=== PATIENT | female | born 1945 | race Caucasian/White ===

== ENCOUNTER 2020-08-14 17:59 | Emergency (ER) | payer MEDICARE, OTHER ==
[~2020-08-14] VITALS: Ht 167.6 cm; Wt 53.0 kg
[2020-08-14 18:10] VITALS: BP 150/100
--- NOTE | 2020-08-14 18:12 | PHYS DOC ---
Past History Past Medical History: Arthritis General Adult EDM: Chief Complaint: MECHANICAL FALL HPI: HPI: "..Well its my anniversary ...but for some reasion I was out doing the recycling container and I tripped and fell.. I tried to catch myself but I messed up this wrist and hand... " Patient is a 74 year old female who presents with above history and trip and fall. Patient's mechanism of injury was FOOSH. Patient has obvious displacement of left wrist edema , swelling with ecchymosis. Pain is localized in primary Lt wrist and scaphoid area of the left hand. Distal capillary refill is equal to fingers and right hand. Patient sensation is equal to that of right hand. No upper arm tenderness. Patient denies other injury. Patient normally follows with Dr. Montgomery as a primary. Review of Systems: Review of Systems: Constitutional: Denies fever or chills Eyes: Denies change in visual acuity HENT: Denies nasal congestion or sore throat Respiratory: Denies cough or shortness of breath Cardiovascular: Denies chest pain or edema GI: Denies abdominal pain, nausea, vomiting, bloody stools or diarrhea : Denies dysuria Musculoskeletal: Complains of left wrist and hand pain Integument: Denies rash Neurologic: Denies headache, focal weakness or sensory changes Endocrine: Denies polyuria or polydipsia Lymphatic: Denies swollen glands Psychiatric: Denies depression or anxiety Family History: Family History: Noncontributory to presentation Current Medications: Current Meds: Current Medications Medications (Trade) Dose Ordered Sig/Nancy Start Time Stop Time Status Last Admin Dose Admin Oxycodone/ Acetaminophen (Percocet 5/325) 2 tab 1X ONCE 08/14/20 18:15 08/14/20 18:16 UNV Allergies: Allergies: Allergies Coded Allergies Type Severity Reaction Last Updated Verified No Known Drug Allergies 08/14/20 No Physical Exam: PE: Constitutional: Moderate acute distress, non-toxic appearance. [] HENT: Normocephalic, atraumatic, bilateral external ears normal, oropharynx moist, no oral exudates, nose normal. [] Eyes: PERRLA, EOMI, conjunctiva normal, no discharge. Glasses Neck: Normal range of motion, no tenderness, supple, no stridor. [] Cardiovascular:Heart rate regular rhythm, no murmur [] Lungs & Thorax: Bilateral breath sounds equal at apex on auscultation [] Abdomen: Bowel sounds normal, soft, no tenderness, no masses, no pulsatile masses. [] Skin: Warm, dry, no erythema, no rash. Poor turgor Back: No tenderness, no CVA tenderness. [] Extremities: No tenderness, no cyanosis, no clubbing, ROM intact, no edema. Except findings in left wrist. Does have mild arthritic changes in bilateral hands. Neurologic: Alert and oriented X 3, normal motor function, normal sensory function, no focal deficits noted. [] Psychologic: Affect normal, judgement normal, mood normal. [] EKG: EKG: [] Radiology/Procedures: Radiology/Procedures: [][place] [address] IMAGING REPORT Signed PATIENT: TANO GARCIAOUNT: [id number] : 1945 LOCATION: ER AGE: 74 SEX: F EXAM STATUS: REG ER ORD. PHYSICIAN: ROSARIO DOYLE MD REASON: FOOSH PROCEDURE: WRIST 3V LEFT XR LT WRIST 3VIEWS, XR HAND_LEFT 3 VIEWS 08/14/2020 6:11 PM INDICATION: Fall on outstretched hand COMPARISON: None available. TECHNIQUE: 3 views of the left wrist and 3 views left hand are provided. FINDINGS/ IMPRESSION: There is a comminuted fracture with apex volar angulation involving the distal radial metadiaphysis with extension to the radiocarpal joint. Distal ulna is intact. Scaphoid and lunate appear intact. Mild osteoarthrosis of the first carpometacarpal joint. There is diffuse osteopenia. Mild interphalangeal joint space narrowing. No additional fractures are identified. Electronically signed by: Karlos Wade MD (08/14/2020 6:35 PM) [facility] DICTATED AND SIGNED BY: KARLOS WADE MD DATE: 08/14/20 1824 CC: ROSARIO DOYLE MD; MARJAN MONTGOMERY MD ~MTH0 0 Heart Score: Risk Factors: Risk Factors: DM, Current or recent (<one month) smoker, HTN, HLP, family history of CAD, obesity. Risk Scores: Score 0 - 3: 2.5% MACE over next 6 weeks - Discharge Home Score 4 - 6: 20.3% MACE over next 6 weeks - Admit for Clinical Observation Score 7 - 10: 72.7% MACE over next 6 weeks - Early Invasive Strategies Course & Med Decision Making: Course & Med Decision Making Pertinent Labs and Imaging studies reviewed. (See chart for details) Reviewed films with patient and plan for follow-up with Ortho. Thumb spica splint applied. With OCL. Distal neurovascular intact after application. Patient take Tylenol and ibuprofen for pain. For marked pain may take Vicoprofen up to 4 times a day. Patient to call [facility] Ortho in the morning. Patient return if any concerns must keep arm elevated. Return if any concerns or increased pain and swelling tonight. Monitor closely for decreased circulation in fingertips. Impression: 1. Trip and fall 2. Comminuted fracture of distal left radius 3. Osteoporosis [] Dragon Disclaimer: Dragwalt Disclaimer: This electronic medical record was generated, in whole or in part, using a voice recognition dictation system. Departure Departure: Scripts Hydrocodone/Ibuprofen (HYDROCODONE-IBUPROFEN 7.5-200 ) 1 Each Tablet 1 TAB PO PRN Q6HRS PRN for PAIN, #30 TAB 0 Refills Prov: ROSARIO DOYLE MD 08/14/20 Anthony Disclaimer This chart was dictated in whole or in part using Voice Recognition software in a busy, high-work load, and often noisy Emergency Department environment. It may contain unintended and wholly unrecognized errors or omissions. ROSARIO DOYLE MD Aug 14, 2020 18:12
[2020-08-14] MEDS ORDERED: oxyCODONE/APAP 5/325 1 TAB TABLET PO ONE (18:15)
--- NOTE | 2020-08-14 18:37 | RAD ---
XR LT WRIST 3VIEWS, XR HAND_LEFT 3 VIEWS 08/14/2020 6:11 PM INDICATION: Fall on outstretched hand COMPARISON: None available. TECHNIQUE: 3 views of the left wrist and 3 views left hand are provided. FINDINGS/ IMPRESSION: There is a comminuted fracture with apex volar angulation involving the distal radial metadiaphysis w ith extension to the radiocarpal joint. Distal ulna is intact. Scaphoid and lunate appear intact. Mil d osteoarthrosis of the first carpometacarpal joint. There is diffuse osteopenia. Mild interphalangea l joint space narrowing. No additional fractures are identified. Electronically signed by: Jackelin Eagle MD (08/14/2020 6:35 PM) MIA[facility]
[2020-08-14] MEDS ORDERED: HYDR-1179 PO (18:43)
== END 2020-08-14 19:09 | disposition home or self-care (01) ==
LOC: ER 17:59
DX: S52.502A Unspecified fracture of the lower end of left radius, initial encounter for closed fracture (principal); M81.0 Age-related osteoporosis without current pathological fracture; W01.0XXA Fall on same level from slipping, tripping and stumbling without subsequent striking against object, initial encounter; Y93.89 Activity, other specified; Y92.89 Other specified places as the place of occurrence of the external cause; Y99.8 Other external cause status
CPT/HCPCS: 29125; 73110; 73130; 99284